=== PATIENT | male | born 1985 ===

== ENCOUNTER → 2024-05-07 07:17 | Outpatient (REF) | payer BC, SELFPAY | LOC: HWRCS 07:17 | PROVIDERS: ATTENDING PHYSICIAN Internal Medicine; FAMILY PHYSICIAN Physician Assistant Medical | DX: R94.31 Abnormal electrocardiogram [ECG] [EKG] (principal); R07.9 Chest pain, unspecified | CPT/HCPCS: 93306 ==

== ENCOUNTER → 2024-05-26 07:32 | Outpatient (REF) | payer BC, SELFPAY | LOC: RCS 07:32 | PROVIDERS: ATTENDING PHYSICIAN Internal Medicine; FAMILY PHYSICIAN Physician Assistant Medical | DX: R94.31 Abnormal electrocardiogram [ECG] [EKG] (principal); R07.9 Chest pain, unspecified | CPT/HCPCS: 93017 ==

== ENCOUNTER → 2024-12-30 11:34 | Outpatient (REF) | payer BC, SELFPAY | LOC: HWRAD 11:34 | PROVIDERS: ATTENDING PHYSICIAN Podiatrist Foot & Ankle Surgery; FAMILY PHYSICIAN Physician Assistant Medical | DX: M72.2 Plantar fascial fibromatosis (principal) | CPT/HCPCS: 73630 ==